=== PATIENT | male | born 1995 | race Two or more races ===

== ENCOUNTER 2021-03-08 21:48 | Emergency (ER) | payer OTHER ==
[~2021-03-08] VITALS: Ht 167.6 cm; Wt 89.0 kg
--- NOTE | 2021-03-08 22:05 | RAD ---
Exam: CT head INDICATION: Stroke TECHNIQUE: Sequential axial images through the head were obtained without the administration of IV co ntrast. Exposure: One or more of the following in the visualized dose reduction techniques were utilized for this examination: 1. Automated exposure control 2. Adjustment of the MA and/or KV according to patient size 3. Use of iterative of reconstructive technique Comparisons: None FINDINGS: There is a 3.4 x 3.3 cm hyperattenuating rounded mass centered within the left frontal parietal regio n with surrounding vasogenic edema. Suggestion of calcifications along the upper rim of this masslike area. There is mild compression of the left lateral ventricle. No midline shift. There is sulcal eff acement throughout the left parietal lobe. No acute vascular territory infarction is identified. Ramos-white distinction is preserved. The basal cisterns are well maintained. No evidence for herniation on this study. The visualized portions of the paranasal sinuses and mastoid air cells are well-pneumatized. No acute fractures. IMPRESSION: 1. A 3.4 x 3.3 cm hyperattenuating masslike area in the left parietal lobe, favored represent neopla sm. Hemorrhage or hemorrhagic mass is difficult to exclude. MRI with contrast is recommended for furt her evaluation. 2. Moderate amount of surrounding vasogenic edema with mild mass effect as described above. FOR INTERNAL CODING PURPOSES Critical result: Findings discussed with Mellissa at 03/08/2021 10:01 PM. RESULT CODE: (C) Electronically signed by: Pedro Dupont MD (03/08/2021 10:03 PM) [facility]
[2021-03-08 22:39] LABS: CALCIUM 8.2 mg/dL (8.5-10.1); GFR 90.3
[2021-03-08 22:44] LABS: HEMATOCRIT 41.8 % (39.0-53.0); HEMOGLOBIN 14.3 g/dL (13.0-17.5); RED BLOOD COUNT 4.83 x10^6/uL (4.30-5.70); RED CELL DISTRIBUTION WIDTH 13.5 % (11.5-14.5); WHITE BLOOD COUNT 5.8 x10^3/uL (4.0-11.0)
[2021-03-08 22:45] LABS: ALBUMIN 3.5 g/dL (3.4-5.0); TOTAL BILIRUBIN 0.2 mg/dL (0.2-1.0); TOTAL PROTEIN 7.1 g/dL (6.4-8.2)
--- NOTE | 2021-03-08 23:10 | EKG ---
[address] [address] Test Date: 2021-03-08 Test Time: 22:16:17 Pat Name: CHOLO ROBLESJEANNEAmbika Department: Room: Gender: M Youth Director: YANCY : 1995 Requested By: ROLANDO AMBROSE Order Number: [id number] Reading MD: Measurements Intervals Lula Rate: 62 P: 42 AK: 158 QRS: 76 QRSD: 112 T: 46 QT: 392 QTc: 400 Interpretive Statements SINUS RHYTHM INCOMPLETE RIGHT BUNDLE BRANCH BLOCK OTHERWISE NORMAL ECG RI6.02 No previous ECG available for comparison
--- NOTE | 2021-03-08 23:11 | PHYS DOC ---
Adult General Chief Complaint Chief Complaint: ALTERED MENTAL STATUS HPI HPI Patient is a 25-year-old male who [facility] chief complaint of confusion and right hand numbness/tingling and cramping. Per correction staff he walked over to the hospital about 8PM on his own feeling conf used and having cramps in his right hand with loss of sensation. States that he never had anything like this before. Patient denies chest pain, shortness of breath, abdominal pain, nausea, vomiting. Denies any recent travel or traumas. Denies any drug use. Endorses generalized whole head headache, and difficulty thinking. Review of Systems Review of Systems Review of systems otherwise unremarkable except noted in HPI, as patient is mildly confused and having trouble answering questions Physical Exam Physical Exam Constitutional: Well developed, well nourished, no acute distress, non-toxic appearance. [] HENT: Normocephalic, atraumatic, bilateral external ears normal, oropharynx moist, no oral exudates, nose normal. [] Eyes: PERRLA, EOMI, conjunctiva normal, no discharge. [] Neck: Normal range of motion, no tenderness, supple, no stridor. [] Cardiovascular:Heart rate regular rhythm, no murmur [] Lungs & Thorax: Bilateral breath sounds clear to auscultation [] Abdomen: Bowel sounds normal, soft, no tenderness, no masses, no pulsatile masses. [] Skin: Warm, dry, no erythema, no rash. [] Back: No tenderness, no CVA tenderness. [] Extremities: No tenderness, no cyanosis, no clubbing, ROM intact, no edema. [] Neurologic: Patient alert and oriented to name but not place, date or time. Cranial nerves intact. Right upper extremity contraction with sensation loss and motor deficit, 4 out of 5. All other extremities with normal sensation and motor function. Patient able to sit, walk and stand. Patient does appear to have trouble answering questions and is slow to respond Current Patient Data Lab Results Laboratory Tests Test 03/08/21 22:10 White Blood Count 5.8 x10^3/uL (4.0-11.0) Red Blood Count 4.83 x10^6/uL (4.30-5.70) Hemoglobin 14.3 g/dL (13.0-17.5) Hematocrit 41.8 % (39.0-53.0) Mean Corpuscular Volume 87 fL (79-100) Mean Corpuscular Hemoglobin 30 pg (25-35) Mean Corpuscular Hemoglobin Concent 34 g/dL (31-37) Red Cell Distribution Width 13.5 % (11.5-14.5) Platelet Count 242 x10^3/uL (140-400) Sodium Level 142 mmol/L (136-145) Potassium Level 4.0 mmol/L (3.5-5.1) Chloride Level 106 mmol/L (98-107) Carbon Dioxide Level 28 mmol/L (21-32) Anion Gap 8 (6-14) Blood Urea Nitrogen 12 mg/dL (8-26) Creatinine 1.0 mg/dL (0.7-1.3) Estimated GFR (Cockcroft-Gault) 90.3 BUN/Creatinine Ratio 12 (6-20) Glucose Level 104 mg/dL (70-99) H Calcium Level 8.2 mg/dL (8.5-10.1) L Total Bilirubin 0.2 mg/dL (0.2-1.0) Aspartate Amino Transferase (AST) 18 U/L (15-37) Alanine Aminotransferase (ALT) 33 U/L (16-63) Alkaline Phosphatase 78 U/L (46-116) Troponin I Quantitative < 0.017 ng/mL (0-0.055) Total Protein 7.1 g/dL (6.4-8.2) Albumin 3.5 g/dL (3.4-5.0) Albumin/Globulin Ratio 1.0 (1.0-1.7) EKG EKG [] Radiology/Procedures Radiology/Procedures [] Heart Score C/O Chest Pain: No Risk Factors: Risk Factors: DM, Current or recent (<one month) smoker, HTN, HLP, family history of CAD, obesity. Risk Scores: Risk Factors: DM, Current or recent (<one month) smoker, HTN, HLP, family history of CAD, obesity. Course & Med Decision Making Course & Med Decision Making Patient is a 25-year-old male who presents from the [facility] with confusion and right arm motor, sensation deficits as well as contraction of the right hand which started about 3 hours ago And not concerning. Physical exam noted above. Patient placed on the monitor with IV access established. Patient stroke activated. CT of the head notable for a 3.4 x 3.3 cm hyperattenuating mass in the left parietal lobe favored neoplasm with hemorrhagic mass hard to exclude and moderate amount of vasogenic edema. Basic laboratory analysis not concerning. Patient given dexamethasone, Keppra and Ativan. Discussed all findings with patient and recommended admission to the hospital for continued neurologic/neurosurgical treatment evaluation. Both patient and correction guards verbalized understanding and agreed with plan of transfer and admission to [facility]'s facility is a [facility] uses their system. [] Dragon Disclaimer Dragon Disclaimer This electronic medical record was generated, in whole or in part, using a voice recognition dictation system. Departure Departure: Impression: Primary Impression: Confusion Additional Impressions: Sensory loss Mass, brain Disposition: 02 SHORT TERM HOSPITAL Condition: STABLE Referrals: PCP,NO (PCP) Problem Qualifiers ROLANDO AMBROSE MD March 08, 2021 23:11
[2021-03-08] MEDS ORDERED: DEXAMETHASONE SOD PHOS 4 MG/ML VIAL. IVP ONE (23:15)
[2021-03-08] MEDS ORDERED: levETIRAcetam 500 MG/5 ML VIAL IV ONE (23:16)
[2021-03-08] MEDS ORDERED: IV NORMAL SALINE 100ML 100 ML ONE (23:16)
[2021-03-09 00:10] VITALS: BP 122/58
== END 2021-03-09 00:15 | disposition short-term general hospital (02) ==
LOC: ER 21:48
DX: G93.89 Other specified disorders of brain (principal); R41.0 Disorientation, unspecified; R20.0 Anesthesia of skin
CPT/HCPCS: 36415; 70450; 80053; 84484; 85027; 93005; 96365; 96375; 99285; J1100; J1953; J2060